=== PATIENT | female | born 1980 | race Caucasian/White ===

== ENCOUNTER 2018-10-18 06:32 | Inpatient (IN) | payer OTHER ==
[~2018-10-18] VITALS: Ht 162.6 cm; Wt 82.6 kg
== END 2018-10-19 12:15 | disposition home or self-care (01) | DRG 833 ==
LOC: OB/GYN 06:32
PROVIDERS: ADMIT Obstetrics & Gynecology
PROC: 4A1HXCZ Monitoring of Products of Conception, Cardiac Rate, External Approach (ICD-10-PCS; principal; 2018-10-18)
DX: O24.414 Gestational diabetes mellitus in pregnancy, insulin controlled (principal); Z34.02 Encounter for supervision of normal first pregnancy, second trimester
CPT/HCPCS: 240

== ENCOUNTER 2019-01-10 09:45 | Inpatient (IN) | payer OTHER ==
[~2019-01-10] VITALS: Ht 162.6 cm; Wt 3.6 kg
[2019-01-17] MEDS ORDERED: PROGESTERONE200 MG PO (09:30)
[2019-01-17] MEDS ORDERED: MAXFE CAPLET1 EACH PO (09:30)
== END 2019-01-18 17:11 | disposition home or self-care (01) | DRG 788 ==
LOC: OB/GYN 01-14 12:23 → LDR 01-14 12:23 → OB/GYN 01-16 07:41
PROVIDERS: ADMIT Obstetrics & Gynecology
PROC: 4A0HXFZ Measurement of Products of Conception, Cardiac Rhythm, External Approach (ICD-10-PCS; principal; 2019-01-16)
PROC: 10D00Z1 Extraction of Products of Conception, Low, Open Approach (ICD-10-PCS; 2019-01-16)
DX: O82 Encounter for cesarean delivery without indication (principal); O61.0 Failed medical induction of labor; O24.410 Gestational diabetes mellitus in pregnancy, diet controlled; Z3A.38 38 weeks gestation of pregnancy; Z37.0 Single live birth